=== PATIENT | male | born 1965 | race Caucasian/White ===

== ENCOUNTER 2017-04-18 00:11 | Emergency (ER) | payer SELFPAY ==
[2017-04-18] MEDS ORDERED: MUCINEX100 MG/5 M (00:20)
== END 2017-04-18 00:38 | disposition home or self-care (01) ==
LOC: SED 00:11
DX: J01.90 Acute sinusitis, unspecified (principal); F17.200 Nicotine dependence, unspecified, uncomplicated; Z88.8 Allergy status to other drugs, medicaments and biological substances
CPT/HCPCS: 99282